=== PATIENT | male | born 1950 | race Caucasian/White ===

== ENCOUNTER 2023-11-23 01:25 | Emergency (ER) | payer MEDICARE ==
[~2023-11-23] VITALS: Ht 175.3 cm; Wt 113.0 kg
[2023-11-23] VITALS (10 sets, daily range): BP systolic 100–159; BP diastolic 60–90
[2023-11-23] MEDS ORDERED: ASPIRINCHW 81MG PO (02:28)
[2023-11-23] MEDS ORDERED: BENICAR20 MG PO (02:28)
[2023-11-23] MEDS ORDERED: ATORVASTATIN CA10 MG PO (02:28)
[2023-11-23] MEDS ORDERED: MELOXICAM15 MG PO (02:29)
[2023-11-23] MEDS ORDERED: FENOFIBRATE145 MG PO (02:29)
[2023-11-23] MEDS ORDERED: D350 MCG (02:30)
[2023-11-23] MEDS ORDERED: VITAMIN C500 M1 PO (02:31)
[2023-11-23 02:32] LABS: LIPASE 131 u/l (23-300)
[2023-11-23] MEDS ORDERED: FISH OIL1000 M1 PO (02:32)
[2023-11-23] MEDS ORDERED: ROPINIROLE1 MG PO (02:32)
[2023-11-23] MEDS ORDERED: FLEXERIL5 M1 PO (02:32)
[2023-11-23 02:36] LABS: ALBUMIN 4.6 g/dL (3.2-5.0); ALKALINE PHOSPHATASE 51 u/l (38-126); ANION GAP 17 (6-22 (CALC)); BILIRUBIN, TOTAL 0.6 mg/dL (0.2-1.3); BUN 23 mg/dL (8-23); BUN/CREATININE RATIO 17 (12-20 (CALC)); CARBON DIOXIDE 19 mmol/l (22-30); CHLORIDE 108 mmol/l (95-108); CREATININE 1.3 mg/dL (0.7-1.3); GFR FOR AFR.AMER. > 60 ML/MIN (>=60 (CALC)); GFR OTHER RACES 55 ML/MIN (>=60 (CALC)); POTASSIUM 4.8 mmol/l (3.5-5.1); SGOT/AST 44 u/l (19-48); SODIUM 139 mmol/l (137-146)
[2023-11-23 02:58] LABS: BASO% 0.4 % (0-3); EOS% 0.2 % (0-8); HEMATOCRIT 36.8 % (39.0-50.0); HEMOGLOBIN 12.1 g/dl (14.0-18.0); IMMATURE GRANULOCYTES 0.3 % (0.0-5.0); LYMPH% 7.5 % (15-41); MEAN CELL VOLUME 98.7 fL CALC (80.0-100.0); MEAN CORPUSCULAR HGB 32.4 pG CALC (26.0-32.0); MEAN CORPUSCULAR HGB CONC 32.9 g/dL CAL (32.0-36.0); MONO% 5.2 % (2-13); NEUT# 8.17 thou/uL (1.82-7.42); NEUT% 86.4 % (42-76); RED BLOOD COUNT 3.73 mill/uL (4.70-6.10); RED CELL DISTRI WIDTH 11.7 % (11.5-15.5)
[2023-11-23] MEDS ORDERED: TRAMADOL HCL50 MG PO (04:23)
== END 2023-11-23 04:40 | disposition home or self-care (01) ==
LOC: ED 01:25
PROVIDERS: Family Medicine
DX: N13.2 Hydronephrosis with renal and ureteral calculous obstruction (principal); I10 Essential (primary) hypertension; D68.2 Hereditary deficiency of other clotting factors; Z86.79 Personal history of other diseases of the circulatory system; F17.220 Nicotine dependence, chewing tobacco, uncomplicated